=== PATIENT | male | born 1980 | race Caucasian/White ===

== ENCOUNTER 2020-11-13 04:19 | Emergency (ER) | payer OTHER ==
[~2020-11-13] VITALS: Ht 180.3 cm; Wt 96.6 kg
[2020-11-13] MEDS ORDERED: LIPITOR40 MG PO (04:36)
[2020-11-13] MEDS ORDERED: BUSPIRONE HCL15 MG PO (04:36)
[2020-11-13] MEDS ORDERED: ZYRTEC10 MG PO (04:37)
[2020-11-13] MEDS ORDERED: MELATIN3 MG PO (04:38)
[2020-11-13] MEDS ORDERED: HYDROCHLOROTHIA25 MG PO (04:38)
[2020-11-13] MEDS ORDERED: PROZAC20 MG PO (04:38)
[2020-11-13] MEDS ORDERED: MULTAQ400 MG PO (04:39)
[2020-11-13] MEDS ORDERED: PRILOSEC OTC20 MG PO (04:39)
[2020-11-13] MEDS ORDERED: K-TAB ER20 MEQ PO (04:40)
[2020-11-13] MEDS ORDERED: RISPERDAL3 MG PO (04:40)
[2020-11-13] MEDS ORDERED: FLOMAX0.4 MG PO (04:41)
[2020-11-13] MEDS ORDERED: IMITREX50 MG PO (04:41)
[2020-11-13] MEDS ORDERED: TRAZODONE HCL100 MG PO (04:42)
--- NOTE | 2020-11-13 20:40 | EKG ---
[facility] [address] [place], [place] [address] Signed Sinus tachycardia Inferior infarct , age undetermined Abnormal ECG No previous ECGs available Confirmed by FAROOQ JARRETT DO ([id number]) on 11/13/2020 8:40:45 PM Electronically Signed By: FAROOQ JARRETT DO 11/13/202039 PATIENT NAME: ALLAN RODARTE Electrocardiogram DATE OF : 78 PHYSICIAN: FAROOQ JARRETT DO REPORT #: [id number] REPORT IS CONFIDENTIAL AND NOT TO BE RELEASED WITHOUT AUTHORIZATION
== END 2020-11-13 05:55 | disposition home or self-care (01) ==
LOC: ED 04:19
DX: R07.9 Chest pain, unspecified (principal); I48.91 Unspecified atrial fibrillation; K21.9 Gastro-esophageal reflux disease without esophagitis; I10 Essential (primary) hypertension; E78.5 Hyperlipidemia, unspecified; Z88.5 Allergy status to narcotic agent; Z88.8 Allergy status to other drugs, medicaments and biological substances; Z79.899 Other long term (current) drug therapy
CPT/HCPCS: 71045; 80053; 83735; 84484; 85025; 93005; 93010; 99285-25; J7030

== ENCOUNTER 2021-07-13 15:49 | Emergency (ER) | payer OTHER ==
[~2021-07-13] VITALS: Ht 180.3 cm; Wt 91.2 kg
[~2021-07-13 15:49] MED LIST: BUSPIRONE HCL15 MG PO; FLOMAX0.4 MG PO; HYDROCHLOROTHIA25 MG PO; IMITREX50 MG PO; K-TAB ER20 MEQ PO; LIPITOR40 MG PO; MELATIN3 MG PO; MULTAQ400 MG PO; PRILOSEC OTC20 MG PO; PROZAC20 MG PO; RISPERDAL3 MG PO; TRAZODONE HCL100 MG PO; ZYRTEC10 MG PO
[2021-07-13] MEDS ORDERED: REGLAN10 MG PO (19:20)
== END 2021-07-13 19:32 | disposition home or self-care (01) ==
LOC: ED 15:49
DX: I10 Essential (primary) hypertension (principal); I48.91 Unspecified atrial fibrillation; E78.5 Hyperlipidemia, unspecified; Z88.5 Allergy status to narcotic agent; Z79.899 Other long term (current) drug therapy
CPT/HCPCS: 70450; 99284-25

== ENCOUNTER 2021-07-18 19:51 | Emergency (ER) | payer OTHER ==
[~2021-07-18] VITALS: Ht 180.3 cm; Wt 90.3 kg
[~2021-07-18 19:51] MED LIST changes: +REGLAN10 MG PO
--- OUTSIDE RECORDS SUMMARY | 2021-07-18 20:46 | XMS ---
PreManage Notification: ALLAN RODARTE Security [place] [employer] Events No recent Security Events currently on file CRITERIA MET - [facility] - 2 Visits in 30 Days CARE PROVIDERS There are no care providers on record at this time. Misa has no Care Guidelines for this patient. Natalie [facility] ([facility] MO.) [facility] NOTE: Visits indicate total known visits. ED/C VISIT TRACKING (12 MO.) [facility] [place] [facility] COMPLAINT: - CHEST PAIN, HIGH BP 07/13/2021 15:50 [facility] [place] TYPE: Emergency COMPLAINT: - HIGH BP, HEADACHE DIAGNOSES: - Unspecified atrial fibrillation - Essential (primary) hypertension - Hyperlipidemia, unspecified - Headache, unspecified - Allergy status to narcotic agent - Other intermediate (current) drug therapy 11/13/2020 04:20 [facility] [place] TYPE: Emergency COMPLAINT: - CHEST PAIN DIAGNOSES: - Allergy status to narcotic agent - Allergy status to other drugs, medicaments and biological substances - Unspecified atrial fibrillation - Essential (primary) hypertension - Gastro-esophageal reflux disease without esophagitis - Hyperlipidemia, unspecified - Chest pain, unspecified - Other intermediate (current) drug therapy INPATIENT VISIT TRACKING (12 MO.) No inpatient visits to display in this time frame [id number]
--- NOTE | 2021-07-20 18:09 | EKG ---
[facility] [address] [facility] [address] [facility] [place] [address] Signed Normal sinus rhythm Prolonged QT Abnormal ECG When compared with ECG of 13-NOV-2020 04:21, Vent. rate has decreased BY 46 BPM Confirmed by CHERRI ROWLAND MD ([id number]) on 07/20/2021 6:08:50 PM Electronically Signed By: CHERRI ROWLAND MD 07/20/21 1809 PATIENT NAME: ALLAN RODARTE Electrocardiogram DATE OF : 78 PHYSICIAN: CHERRI ROWLAND MD REPORT #: [id number] REPORT IS CONFIDENTIAL AND NOT TO BE RELEASED WITHOUT AUTHORIZATION
== END 2021-07-18 23:27 | disposition home or self-care (01) ==
LOC: ED 19:51
DX: R07.9 Chest pain, unspecified (principal); R05 Cough; I10 Essential (primary) hypertension; E78.5 Hyperlipidemia, unspecified; K21.9 Gastro-esophageal reflux disease without esophagitis; Z88.5 Allergy status to narcotic agent; Z79.899 Other long term (current) drug therapy
CPT/HCPCS: 71045; 80053; 83735; 84484; 85025; 93005; 93010; 96374; 99285-25; J1885

== ENCOUNTER 2022-11-03 22:42 | Emergency (ER) | payer OTHER ==
[~2022-11-03] VITALS: Ht 180.3 cm; Wt 92.3 kg
--- NOTE | 2022-11-04 21:37 | EKG ---
[facility] [address] [place] [address] Signed Normal sinus rhythm Minimal voltage criteria for LVH, may be normal variant ( [place] product ) Inferior infarct , age undetermined Abnormal ECG When compared with ECG of 18-JUL-2021 19:54, No significant change was found Confirmed by Roman Yoder MD () on 11/04/2022 9:37:46 PM Electronically Signed By: ROMAN YODER MD 11/04/22 2137 PATIENT NAME: ALLAN RODARTE Electrocardiogram DATE OF : 78 PHYSICIAN: ROMAN YODER MD REPORT #: [id number] REPORT IS CONFIDENTIAL AND NOT TO BE RELEASED WITHOUT AUTHORIZATION
== END 2022-11-04 01:25 | disposition home or self-care (01) ==
LOC: ED 22:42
DX: R07.89 Other chest pain (principal); I48.91 Unspecified atrial fibrillation; E78.5 Hyperlipidemia, unspecified; I10 Essential (primary) hypertension; Z88.5 Allergy status to narcotic agent; Z79.899 Other long term (current) drug therapy
CPT/HCPCS: 36415; 71045; 80053; 83735; 84484; 85025; 85379; 93005; 93010; 99285-25

== ENCOUNTER 2023-06-01 09:42 | Day surgery (SDC) | payer OTHER ==
[~2023-06-01] VITALS: Ht 180.3 cm; Wt 90.0 kg
[2023-06-01 09:57] VITALS: BP 121/81
--- NOTE | 2023-06-01 10:17 | NUR ---
ACCOMPANYIED BY [employer] OFFICERS. BOTH AT BEDSIDE.
--- NOTE | 2023-06-01 11:50 | NUR ---
06/01/23 1150 Juliann Edmondson 1136- PT ARRIVES TO THE UNIT VIA STRETCHER W/EYES CLOSED AND RESTING ON LFT SIDE. PT RESPIRATIONS ARE EVEN AND UNLABORED, NO SIGNS OF DISTRESS. PT ON 3L OF O2 VIA NC AT THIS TIME W/O2 SATS >90%. PT RESPONSIVE TO VERBAL STIMULI AND ANSWERS QUESTIONS APPROPRIATELY. PT AUDIBLY PASSING GAS AT THIS TIME AND APPEARS COMFORTABLE. X2 [facility] GUARDS AT BEDSIDE.
[2023-06-01 12:19] VITALS: BP 108/80
--- NOTE | 2023-06-03 08:40 | OR ---
[facility] [address] [place], [place] [address] Signed DATE OF OPERATION: 06/01/2023 SURGEON: Pam Graff MD PREOPERATIVE DIAGNOSIS: Longstanding diarrhea. No prior colonoscopy. POSTOPERATIVE DIAGNOSIS: Sigmoid and left-sided diverticulosis. No evidence of colitis. PROCEDURE: Colonoscopy with biopsy of ileocecal valve, cecum and rectum. ANESTHESIA: Intravenous sedation with fentanyl 150 mcg and Versed 5 mg. INDICATION: This 42-year-old white man is a prisoner at [facility] and a patient of DAVID Quintanilla. He has a longstanding history of diarrhea. He was found to have an elevated fecal calprotectin and concerns regarding possible inflammatory bowel disease are made on that basis. He has never had colonoscopy in the past. He is improved with Lomotil for his diarrhea problem and he has had no blood per rectum. He has no family history of colon cancer or inflammatory bowel disease that he is aware of. He is admitted at this time to undergo colonoscopy to better characterize the problem and specifically to assess for inflammatory bowel disease. FINDINGS: The prep was good. Complete colonoscopy was undertaken to the cecum. Attempts were unsuccessful to intubate the ileum. Biopsy was taken of the ileocecal valve, cecum, and rectum. Innumerous diverticula of the sigmoid and left colon. There is no evidence of polyps or cancer and certainly no sign of inflammatory bowel disease. Biopsies were taken to assess for occult colitis (lymphocytic colitis, etc.) PROCEDURE IN DETAIL: The patient was brought to the endoscopy suite and placed in lateral decubitus position, given intravenous sedation to the point of slurred speech and nystagmus. Full cardiopulmonary monitoring was maintained. Digital rectal examination was normal. An Olympus video colonoscope was passed in the rectum and manipulated throughout the colon noting diverticula of the sigmoid and left colon. Scope was ultimately advanced Electronically Signed By: PAM GRAFF MD 06/03/23 0840 PATIENT NAME: ALLAN RODARTE OPERATIVE REPORT DATE OF : 78 REPORT #: [id number] PHYSICIAN: PAM GRAFF MD PCP: ANUP ODOM REPORT IS CONFIDENTIAL AND NOT TO BE RELEASED WITHOUT AUTHORIZATION [facility] [address] [place], [place] [address] Signed to the cecum. Full intubation of the cecum was not forthcoming, but excellent view of the entire cecum was noted. Various manipulations were undertaken to pass the scope into the ileocecal valve, but it was not able to be done despite efforts to do so. A biopsy forceps was able to biopsy the mucosa of the outer portion of the ileocecal valve, but true intubation of the ileum was not forthcoming. Biopsies were additionally taken of the cecum, though the mucosa appeared normal. Scope was withdrawn and examination throughout showed no sign of colitis or polyps, but innumerous diverticula of the left colon and sigmoid. Retroflexed view was normal as well. Biopsies were taken of the rectum also. The scope was removed. The patient was taken to the recovery room in good condition. CONCLUDING DIAGNOSIS: Diverticulosis of sigmoid and left colon. No evidence of obvious inflammatory bowel disease. Pathology is pending. PLAN: Continued use of his antimotility agent would be most appropriate at this time. We will see him back in the [facility] clinic on my next visit, review his pathology reports and his current symptoms. It would be appropriate to initiate a fiber supplement such as Metamucil or at minimum a high-fiber diet given his diverticulosis. This may improve his diarrhea as well. MD ALONDRA Valdivia/TAMARA /[id number] cc: DAVID Rodriguez Copies: ANUP ODOM ~ Electronically Signed By: PAM GRAFF MD 06/03/23 0840 PATIENT NAME: ALLAN RODARTE OPERATIVE REPORT DATE OF : 78 REPORT #: [id number] PHYSICIAN: PAM GRAFF MD PCP: ANUP ODOM REPORT IS CONFIDENTIAL AND NOT TO BE RELEASED WITHOUT AUTHORIZATION
--- NOTE | 2023-06-04 12:18 | PATH ---
[facility] [address] [place], [place] [address] Signed SPECIMEN(S): A CECUM COLON BIOPSY SPECIMEN(S): B ILEOCECAL VALVE SPECIMEN(S): C DESCENDING/LEFT COLON BIOPSY SPECIMEN(S): D RECTUM SPECIMEN SOURCE: A. CECUM COLON BIOPSY B. ILEOCECAL VALVE C. DESCENDING/LEFT COLON BIOPSY D. RECTUM CLINICAL HISTORY: Diarrhea, elevated fecal calprotectin. Postop: Diverticulitis. FINAL PATHOLOGIC DIAGNOSIS: A. Cecum colon biopsy: - Benign colonic mucosa, negative for pathologic inflammation or dysplasia. B. Ileocecal valve: - Benign colonic mucosa, negative for pathologic inflammation or dysplasia. - Benign small bowel-type mucosa with superficial epithelial erosion. - Negative for atypical features. C. Descending / left colon biopsy: - Benign colonic mucosa, negative for pathologic inflammation or dysplasia. D. Rectum, biopsy: - Hyperplastic polyp (two fragments). JVR:[facility]:C2NR MICROSCOPIC EXAMINATION: Histologic sections of all submitted blocks are examined by light microscopy. These findings, together with the gross examination, support the pathologic diagnosis. GROSS DESCRIPTION: A. The specimen, labeled and designated "Rodarte, A, colon, cecum biopsy," is received in formalin and consists of 2 mueller soft tissue fragments measuring 0.4 x 0.2 cm and submitted entirely in (A1). B. The specimen, labeled and designated "Rodarte, A, ileocecal valve biopsy," is received in formalin and consists of 2 mueller soft tissue fragments measuring 0.2 to 0.3 cm in length and up to 0.3 cm in diameter, specimens are submitted entirely in (B1). C. The specimen, labeled and designated "Rodarte, A, colon, descending left PATIENT NAME: ALLAN RODARTE PATHOLOGY DATE OF : 78 REPORT #: [id number] PHYSICIAN: [facility] PCP: ANUP ODOM REPORT IS CONFIDENTIAL AND NOT TO BE RELEASED WITHOUT AUTHORIZATION [facility] [address] [place], [place] [address] Signed biopsy," is received in formalin and consists of 2 mueller soft tissue fragments measuring 0.3 to 0.5 cm in length and up to 0.3 cm in greatest dimension, specimens are submitted entirely in (C1). D. The specimen, labeled and designated "Jose Rodarte, rectum biopsy," is received in formalin and consists of 2 mueller soft tissue fragment measuring 0.4 x 0.3 cm, specimens are submitted entirely in (D1). MMA (under the direct supervision of a pathologist) The Gross Description was prepared using a voice recognition system. The report was reviewed for accuracy; however, sound-alike word errors, addition and/or deletions may occur. If there is any question about this report, please contact Client Services. PERFORMING LABORATORY: Technical component was performed by [facility], [address] [place] [id number] (CLIA# [id number]). Professional interpretation was performed by [facility] - [facility], [address] [place] [address], [place] [address] (CLIA#: [id number]). Diagnostician: Evin Reese MD Pathologist Electronically Signed 06/04/2023 Copies: ~ PATIENT NAME: ALLAN RODARTE PATHOLOGY DATE OF : 78 REPORT #: [id number] PHYSICIAN: MANJULA BANKS PCP: ANUP ODOM REPORT IS CONFIDENTIAL AND NOT TO BE RELEASED WITHOUT AUTHORIZATION
== END 2023-06-01 12:30 | disposition home or self-care (01) ==
LOC: OPS 09:42 → DS 09:53 → OPS 11:00 → DS 13:00 → OPS 13:00
PROVIDERS: ATTEND Surgery
PROC: 0DBP8ZX Excision of Rectum, Via Natural or Artificial Opening Endoscopic, Diagnostic (ICD-10-PCS; 2023-06-01)
PROC: 0DBC8ZX Excision of Ileocecal Valve, Via Natural or Artificial Opening Endoscopic, Diagnostic (ICD-10-PCS; 2023-06-01)
PROC: 0DBH8ZX Excision of Cecum, Via Natural or Artificial Opening Endoscopic, Diagnostic (ICD-10-PCS; principal; 2023-06-01 11:00)
DX: K57.30 Diverticulosis of large intestine without perforation or abscess without bleeding (principal); K63.3 Ulcer of intestine; K62.1 Rectal polyp; K52.9 Noninfective gastroenteritis and colitis, unspecified; I10 Essential (primary) hypertension; E78.5 Hyperlipidemia, unspecified; F25.9 Schizoaffective disorder, unspecified; Z88.0 Allergy status to penicillin; Z88.5 Allergy status to narcotic agent; Z79.899 Other long term (current) drug therapy
CPT/HCPCS: 99153; G0500; J2250; J3010

== ENCOUNTER 2025-07-01 13:23 | Emergency (ER) | payer OTHER ==
[~2025-07-01] VITALS: Ht 180.3 cm; Wt 96.0 kg
[2025-07-01 13:41] LABS: BASOPHILS 0.3 % (0.2-1.2); EOSINOPHILS 1.6 % (0.8-7.0); LYMPHOCYTES 21.9 % (21.8-53.1); MCH 30.8 PG (25.7-32.2); MCHC 35.4 g/dL (32.3-36.5); MCV 87.1 fL (79.0-92.2); MONOCYTES 6.2 % (5.3-12.2); NEUTROPHILS 69.7 % (34.0-67.9); RBC 5.35 M/uL (4.63-6.08)
[2025-07-01] MEDS ORDERED: ASPIRIN 81 MG CHEW PO ONE (13:45)
[2025-07-01 13:59] LABS: ALT (SGPT) 36.0 U/L (14-59); AST (SGOT) 20.0 U/L (15-37); GLOMERULAR FILTRATION RATE,EST 76.0 mL/min (>60); PROTEIN, TOTAL 7.7 g/dL (6.4-8.2); UREA NITROGEN 17.0 mg/dL (7-18)
[2025-07-01] MEDS ORDERED: MELATONIN3 MG PO (14:13)
[2025-07-01] MEDS ORDERED: BUSPIRONE HCL10 MG PO (14:13)
[2025-07-01] MEDS ORDERED: SEROQUEL300 MG PO (14:14)
[2025-07-01] MEDS ORDERED: NORVASC5 MG PO (14:15)
[2025-07-01] MEDS ORDERED: VOLTAREN ARTHRI20 GM TOP (14:16)
[2025-07-01] MEDS ORDERED: COZAAR50 MG PO (14:17)
[2025-07-01] MEDS ORDERED: NAPROXEN375 MG PO (14:17)
[2025-07-01] MEDS ORDERED: FAMOTIDINE20 MG PO (14:17)
[2025-07-01] MEDS ORDERED: PROPRANOLOL HCL40 MG PO (14:18)
[2025-07-01] MEDS ORDERED: FLUOXETINE HCL20 MG PO (14:20)
[2025-07-01] MEDS ORDERED: SODIUM CHLORIDE 0.9% 1,000 ML IV ONE (15:00)
[2025-07-01 16:46] VITALS: BP 128/95
--- NOTE | 2025-07-02 07:24 | EKG ---
[facility] [address] [facility] [place] [address] Signed Normal sinus rhythm Minimal voltage criteria for LVH, may be normal variant ( [place] product ) Inferior infarct (cited on or before 03-NOV-2022) Abnormal ECG When compared with ECG of 03-NOV-2022 22:56, No significant change was found Confirmed by MACIEL ONEIL MD ([id number]) on 07/02/2025 7:24:33 AM Electronically Signed By: MACIEL ONEIL 07/02/25 0724 PATIENT NAME: ALLAN RODARTE Electrocardiogram DATE OF : 78 PHYSICIAN: MACIEL ONEIL REPORT #: [id number] REPORT IS CONFIDENTIAL AND NOT TO BE RELEASED WITHOUT AUTHORIZATION
== END 2025-07-01 16:46 | disposition home or self-care (01) ==
LOC: ED 13:23
PROVIDERS: Emergency Medicine
DX: R07.89 Other chest pain (principal); R10.31 Right lower quadrant pain; K59.00 Constipation, unspecified; I10 Essential (primary) hypertension; K21.9 Gastro-esophageal reflux disease without esophagitis; E78.5 Hyperlipidemia, unspecified; I48.91 Unspecified atrial fibrillation; Z88.5 Allergy status to narcotic agent; Z79.899 Other long term (current) drug therapy
CPT/HCPCS: 36415; 71045; 74177; 80053; 81001; 83735; 84484; 85025; 93005; 93010; 99285-25; A9270; J7030; Q9967